=== PATIENT | male | born 1975 | race Caucasian/White ===

== ENCOUNTER 2021-06-23 13:26 | Emergency (ER) | payer SELFPAY ==
[~2021-06-23] VITALS: Ht 165.1 cm; Wt 85.0 kg
[2021-06-23] MEDS ORDERED: PANTOPRAZOLE SODIUM 40 MG/VIAL IV STA (13:57)
[2021-06-23] MEDS ORDERED: ONDANSETRON HCL 4MG/2ML INJ IV STA (13:57)
[2021-06-23] MEDS ORDERED: SODIUM CHLORIDE 0.9% 1,000 ML IV ONE (14:00)
[2021-06-23 15:34] LABS: BASOPHILS % 0.4 % (0.0-2.0); EOSINOPHILS % 0.7 % (0.0-5.0); HEMATOCRIT. 47.6 % (42.0-52.0); HEMOGLOBIN. 16.8 g/dL (14.0-18.0); MEAN CORPUSCULAR HEMOGLOBIN 31.7 pg (28.0-32.0); MEAN CORPUSCULAR VOLUME 89.8 fL (80.0-94.0); MEAN PLATELET VOLUME 8.8 fl (7.4-10.4); MONOCYTES % 6.4 % (2.0-8.0); NEUTROPHILS % 63.5 % (40.0-76.0); PLATELET 214 x1000/uL (130-400); RED CELL DISTRIBUTION WIDTH 13.7 % (11.6-14.6)
[2021-06-23 15:48] LABS: CHLORIDE 105 mEq/L (98-107)
[2021-06-23 16:07] LABS: ETHANOL BLOOD 356 mg/dL
[2021-06-23 18:10] VITALS: BP 140/85
== END 2021-06-23 18:40 | disposition home or self-care (01) ==
LOC: ER 13:26
DX: F10.229 Alcohol dependence with intoxication, unspecified (principal); Y90.8 Blood alcohol level of 240 mg/100 ml or more; E11.9 Type 2 diabetes mellitus without complications; E78.00 Pure hypercholesterolemia, unspecified; I10 Essential (primary) hypertension
CPT/HCPCS: 36415; 80053; 80320; 83690; 85025; 96361; 96374; 96375; 99284; C9113; J2405; J7030; G0480